=== PATIENT | female | born 1945 | race Two or more races ===

== ENCOUNTER → 2016-10-01 | Outpatient (REF) | payer MEDICARE, OTHER | LOC: M LAB REF 14:02 | PROVIDERS: ATTEND Physician Assistant | DX: N39.0 Urinary tract infection, site not specified (principal) ==

== ENCOUNTER → 2016-11-03 | Outpatient (REF) | payer MEDICARE, OTHER | LOC: M LAB REF 19:10 | PROVIDERS: ATTEND Physician Assistant | DX: R30.0 Dysuria (principal) ==

== ENCOUNTER → 2016-11-15 | Outpatient (REF) | payer MEDICARE, OTHER | LOC: M LAB REF 10:22 | PROVIDERS: ATTEND Physician Assistant | DX: R30.0 Dysuria (principal) ==

== ENCOUNTER → 2016-11-25 | Outpatient (REF) | payer MEDICARE, OTHER | LOC: M LAB REF 13:26 | PROVIDERS: ATTEND Physician Assistant | DX: R30.0 Dysuria (principal) ==

== ENCOUNTER → 2016-12-10 | Outpatient (CLI) | payer MEDICARE, BC, OTHER ==
--- NOTE | 2016-12-10 14:31 | REP ---
Renal and bladder ultrasound: The kidneys are normal size. Right kidney measures 10.2 x 6.6 x 3.7 cm. Left kidney measures 10.7 x 5.6 x 3.8 cm. Renal cortical echogenicity is normal bilaterally. There is no hydronephrosis on the right on the left. There are no renal masses, cysts or calculi on the right on the left. Impression: Normal renal ultrasound. Bladder ultrasound: The bladder contains 537 ml of fluid. With color Doppler assessment there are bilateral ureteral jets into the bladder. There are no bladder wall polyps or masses. Impression: Normal bladder ultrasound. Signed by Alex Haider MD 12/10/2016 02:22 P
== END ==
LOC: M SMT 12:55
PROVIDERS: ATTEND Specialist
DX: N39.0 Urinary tract infection, site not specified (principal)

== ENCOUNTER → 2017-11-01 | Outpatient (CLI) | payer MEDICARE, BC, OTHER ==
[2017-11-01 17:50] LABS: HEMATOCRIT 38.4 % (36.0-47.0); HEMOGLOBIN 13.1 g/dl (12.0-15.5); MEAN CORPUSCULAR HGB CONC 34.1 g/dl (32.0-36.5); MEAN CORPUSCULAR VOLUME 99.7 fl (80.0-96.0); PLATELET COUNT, AUTOMATED 341 10^3/uL (150-450); RED BLOOD COUNT 3.85 10^6/uL (4.00-5.40); RED CELL DISTRIBUTION WIDTH 12.7 % (11.5-14.5); WHITE BLOOD COUNT 5.4 10^3/uL (4.0-10.0)
== END ==
LOC: M WUC 10:39
DX: Z01.818 Encounter for other preprocedural examination (principal)
CPT/HCPCS: 85027

== ENCOUNTER → 2017-11-03 | Outpatient (CLI) | payer MEDICARE, BC, OTHER | LOC: M EKG 09:29 | DX: Z01.818 Encounter for other preprocedural examination (principal) | CPT/HCPCS: 93005 ==

== ENCOUNTER → 2018-10-20 | Outpatient (CLI) | payer MEDICARE, BC, OTHER ==
[2018-10-20 13:35] LABS: BASO # 0.1 10^3/uL (0.0-0.2); BASO % 1.1 % (0.0-1.0); EOS # 0.2 10^3/uL (0.0-0.50); EOS % 3.6 % (0.0-3.0); HEMATOCRIT 40.8 % (36.0-47.0); HEMOGLOBIN 13.9 g/dl (12.0-15.5); LYMPH # 1.3 10^3/uL (1.5-4.5); LYMPH % 23.9 % (24.0-44.0); MEAN CORPUSCULAR HEMOGLOBIN 34.3 pg (27.0-33.0); MEAN CORPUSCULAR HGB CONC 34.1 g/dl (32.0-36.5); MEAN CORPUSCULAR VOLUME 100.7 fl (80.0-96.0); MONO # 0.6 10^3/uL (0.0-0.8); MONO % 11.1 % (0.0-5.0); NEUTROPHILS # 3.2 10^3/uL (1.8-7.7); NEUTROPHILS % 60.1 % (36.0-66.0); PLATELET COUNT, AUTOMATED 348 10^3/uL (150-450); RED BLOOD COUNT 4.05 10^6/uL (4.00-5.40); WHITE BLOOD COUNT 5.3 10^3/uL (4.0-10.0)
[2018-10-20 13:58] LABS: ALBUMIN 3.7 GM/DL (3.2-5.2); ALT/SGPT 39 U/L (12-78); BILIRUBIN,TOTAL 0.6 MG/DL (0.2-1.0); BLOOD UREA NITROGEN 17 MG/DL (7-18); CALCIUM LEVEL 9.5 MG/DL (8.8-10.2); CARBON DIOXIDE LEVEL 31 MEQ/L (21-32); CHLORIDE LEVEL 106 MEQ/L (98-107); FREE T4 0.94 NG/DL (0.76-1.46); GLOMERULAR FILTRATION RATE > 60.0 (>39); GLUCOSE, FASTING 82 MG/DL (70-100); SODIUM LEVEL 140 MEQ/L (136-145); THYROID STIMULATING HORMONE 0.237 uIU/ML (0.358-3.740); TOTAL PROTEIN 7.1 GM/DL (6.4-8.2)
[2018-10-23 00:08] LABS: BABESIOSIS LEVEL IGG <1:10 (Neg:<1:10); BABESIOSIS LEVEL IGM <1:10 (Neg:<1:10); Lyme Disease IgG/IgM Antibodie <0.91 ISR (0.00-0.90); Lyme Disease IgM Ab Quantitati <0.80 index (0.00-0.79)
== END ==
LOC: M WUC 10:17
PROVIDERS: ATTEND Physician Assistant
DX: R53.1 Weakness (principal)

== ENCOUNTER 2018-11-09 23:55 | Emergency (ER) | payer MEDICARE, BC, OTHER ==
[~2018-11-09] VITALS: Ht 160 cm; Wt 58.2 kg
[2018-11-09 23:55] VITALS: BP 129/58
--- NOTE | 2018-11-10 09:41 | REP ---
LEFT ANKLE, FOUR VIEWS: There is no evidence of an acute fracture, dislocation or intrinsic bone disease. There is mild inferior calcaneal spurring. IMPRESSION: No fracture or dislocation. Electronically Signed by Alex Palmer MD 11/11/2018 09:50 A
--- NOTE | 2018-11-10 09:42 | REP ---
LEFT FOOT, FOUR VIEWS: There is no evidence of an acute fracture, dislocation or intrinsic bone disease. There is mild inferior calcaneal spurring. IMPRESSION: No fracture or dislocation. Electronically Signed by Alex Palmer MD 11/11/2018 10:47 A
== END 2018-11-10 06:15 | disposition left against medical advice (07) ==
LOC: M ED 23:55
DX: M79.672 Pain in left foot (principal); Z53.21 Procedure and treatment not carried out due to patient leaving prior to being seen by health care provider

== ENCOUNTER → 2018-11-12 | Outpatient (CLI) | payer MEDICARE, BC, OTHER ==
[2018-11-12 15:44] LABS: BASO # 0.1 10^3/uL (0.0-0.2); BASO % 1.5 % (0.0-1.0); C REACTIVE PROTEIN QUANTITATIV 0.75 MG/DL (0.00-0.30); EOS # 0.1 10^3/uL (0.0-0.50); EOS % 2.9 % (0.0-3.0); HEMATOCRIT 42.4 % (36.0-47.0); HEMOGLOBIN 14.2 g/dl (12.0-15.5); LYMPH % 21.3 % (24.0-44.0); MEAN CORPUSCULAR HEMOGLOBIN 34.7 pg (27.0-33.0); MEAN CORPUSCULAR HGB CONC 33.5 g/dl (32.0-36.5); MEAN CORPUSCULAR VOLUME 103.7 fl (80.0-96.0); MONO # 0.6 10^3/uL (0.0-0.8); MONO % 11.9 % (0.0-5.0); NEUTROPHILS % 62.2 % (36.0-66.0); PLATELET COUNT, AUTOMATED 323 10^3/uL (150-450); RED BLOOD COUNT 4.09 10^6/uL (4.00-5.40); URIC ACID 4.3 MG/DL (2.6-6.0); WHITE BLOOD COUNT 4.8 10^3/uL (4.0-10.0)
[2018-11-12 16:49] LABS: ERYTHROCYTE SEDIMENTATION RATE 16 mm/hr (0-30)
== END ==
LOC: M WUC 10:49
PROVIDERS: ATTEND Physician Assistant
DX: M25.572 Pain in left ankle and joints of left foot (principal)

== ENCOUNTER 2020-11-17 16:54 | Emergency (ER) | payer MEDICARE, BC, OTHER ==
[2020-11-17] MEDS ORDERED: ESTR1TAB PO (17:26)
[2020-11-17] MEDS ORDERED: SYNT88TA2 PO (17:26)
[2020-11-17] MEDS ORDERED: NITR50CA34 PO (17:26)
[2020-11-17] MEDS ORDERED: ALPR0.25 PO (17:26)
[2020-11-17] MEDS ORDERED: EXCETAB33 PO (17:27)
--- NOTE | 2020-11-17 18:24 | REPVR ---
PROCEDURE INFORMATION: Exam: CT Head Without Contrast Exam date and time: 11/17/2020 5:48 PM Age: 75 years old Clinical indication: Injury or trauma; Fall; Blunt trauma (contusions or hematomas); Additional info: Fall; Struck head on concrete floor TECHNIQUE: Imaging protocol: Computed tomography of the head without contrast. Radiation optimization: All CT scans at this facility use at least one of these dose optimization techniques: automated exposure control; mA and/or kV adjustment per patient size (includes targeted exams where dose is matched to clinical indication); or iterative reconstruction. COMPARISON: No relevant prior studies available. FINDINGS: Brain: The brain demonstrates mild generalized volume loss. No hemorrhage or edema seen. Cerebral ventricles: No ventriculomegaly. Paranasal sinuses: Visualized sinuses are unremarkable. No fluid levels. Mastoid air cells: Visualized mastoid air cells are well aerated. Orbital cavity: Thinning of the lenses of the globes consistent with prior lens surgery. Bones/joints: No acute calvarial fracture seen. Lucent lesion in the left parietal calvarium may represent a hemangioma. Soft tissues: Right parietal scalp soft tissue swelling with hematoma. IMPRESSION: No acute intracranial abnormality seen. Electronically signed by: Mary Gallagher On 11/17/2020 18:24:17 PM
--- NOTE | 2020-11-17 18:29 | REPVR ---
PROCEDURE INFORMATION: Exam: CT Cervical Spine Without Contrast Exam date and time: 11/17/2020 5:48 PM Age: 75 years old Clinical indication: Injury or trauma; Fall; Blunt trauma; Additional info: Fall; Struck head on concrete floor TECHNIQUE: Imaging protocol: Computed tomography images of the cervical spine without contrast. Radiation optimization: All CT scans at this facility use at least one of these dose optimization techniques: automated exposure control; mA and/or kV adjustment per patient size (includes targeted exams where dose is matched to clinical indication); or iterative reconstruction. COMPARISON: No relevant prior studies available. FINDINGS: Bones/joints: Slight grade 1 degenerative anterolisthesis of C3 on C4 and C4 on C5. No acute fracture seen. Mild, chronic appearing central T1 vertebral body height loss. Discs/Spinal canal/Neural foramina: The cervical spine demonstrates multilevel uncovertebral arthropathy. There is lower cervical prevertebral spondylosis. [id number] degenerative changes at C1-C2. Moderate cervical facet arthropathy. No high-grade central spinal canal stenosis. Neural foraminal stenoses due to uncovertebral and facet arthropathy on the left at C2-C3 and C3-C4. Lungs: The lung apices demonstrate parenchymal scarring. Soft tissues: Unremarkable. IMPRESSION: No cervical spine fracture seen. Electronically signed by: Mary Gallagher On 11/17/2020 18:28:35 PM
[2020-11-17 22:00] VITALS: BP 143/65
[2020-11-17] MEDS ORDERED: KETOROLAC TROMETHAMINE 10 MG TAB PO ONE (22:10)
--- NOTE | 2020-11-17 23:17 | REPVR ---
PROCEDURE INFORMATION: Exam: XR Right Elbow Exam date and time: 11/17/2020 10:38 PM Age: 75 years old Clinical indication: Other: Trauma TECHNIQUE: Imaging protocol: XR Right elbow. Views: 3 or more views. COMPARISON: No relevant prior studies available. FINDINGS: Bones/joints: Normal. Soft tissues: Normal. IMPRESSION: No acute findings. Electronically signed by: Dennis Galindo On 11/17/2020 23:17:10 PM
== END 2020-11-17 22:49 | disposition home or self-care (01) ==
LOC: EDBD 16:54 → M ED 16:54
DX: S01.01XA Laceration without foreign body of scalp, initial encounter (principal); S06.0X0A Concussion without loss of consciousness, initial encounter; W10.8XXA Fall (on) (from) other stairs and steps, initial encounter; X50.0XXA Overexertion from strenuous movement or load, initial encounter; Y92.009 Unspecified place in unspecified non-institutional (private) residence as the place of occurrence of the external cause; Y93.9 Activity, unspecified; Y99.9 Unspecified external cause status

== ENCOUNTER 2024-01-02 12:44 | Outpatient (CLI) | payer MEDICARE, BC ==
[~2024-01-02] VITALS: Ht 160 cm; Wt 57.0 kg
[~2024-01-02 12:44] MED LIST: ALPR0.25 PO; ESTR1TAB PO; EXCETAB32 PO; NITR50CA34 PO; SYNT88TA2 PO
[2024-01-02 13:10] VITALS: BP 143/70; O2SAT 98
[2024-01-02 13:33] LABS: HEMATOCRIT 39.4 % (36.0-47.0); HEMOGLOBIN 13.6 g/dl (12.0-15.5); MEAN CORPUSCULAR HEMOGLOBIN 34.2 pg (27.0-33.0); MEAN CORPUSCULAR HGB CONC 34.5 g/dl (32.0-36.5); PLATELET COUNT, AUTOMATED 424 10^3/uL (150-450); RED BLOOD COUNT 3.98 10^6/uL (4.00-5.40); WHITE BLOOD COUNT 10.3 10^3/uL (4.0-10.0)
== END 2024-01-02 14:00 ==
LOC: M INFU 12:44
PROVIDERS: ATTEND Internal Medicine Hematology & Oncology
DX: E83.110 Hereditary hemochromatosis (principal)